=== PATIENT | female | born 1970 | race Hispanic/Latino ===

== ENCOUNTER → 2018-06-17 | Outpatient (CLI) | payer OTHER | END | disposition home or self-care (01) | LOC: RAH 13:52 | PROVIDERS: ATTEND Family Medicine | DX: Z12.31 Encounter for screening mammogram for malignant neoplasm of breast (principal) | CPT/HCPCS: 77067 ==

== ENCOUNTER → 2018-12-24 | Outpatient (CLI) | payer OTHER | END | disposition home or self-care (01) | LOC: RAH 12:53 | PROVIDERS: ATTEND Family Medicine | DX: N60.01 Solitary cyst of right breast (principal); N63.10 Unspecified lump in the right breast, unspecified quadrant | CPT/HCPCS: 76641; 77065 ==

== ENCOUNTER → 2019-05-29 | Outpatient (CLI) | payer OTHER | END | disposition home or self-care (01) | LOC: RAH 10:00 | PROVIDERS: ATTEND Family Medicine | DX: N63.21 Unspecified lump in the left breast, upper outer quadrant (principal) | CPT/HCPCS: 76641; 77066 ==

== ENCOUNTER → 2019-08-01 | Outpatient (CLI) | payer OTHER ==
[2019-08-01 08:52] LABS: INR 0.99 (0.85-1.15); PARTIAL THROMBOPLASTIN TIME 24.5 SEC (26.3-35.5); PROTHROMBIN TIME 10.4 SEC (9.6-11.6)
--- NOTE | 2019-08-01 09:15 | NUR ---
U/S GUIDED BIOPSY LEFT BREAST NODULE PROCEDURE PERFORMED BY DR. TIRADO. PUNCTURE SITE LEFT LATERAL BREAST. PATIENT TOLERATED PROCEDURE WELL. SPECIMEN X 3 COLLECTED. END OF PROCEDURE AT 0920. BIOPSY NEEDLE REMOVED AND DRESSING APPLIED. NO BLEEDING NOTED. DISCHARGE INSTRUCTIONS GIVEN TO PATIENT AND VERBALIZED UNDERSTANDING. DISCHARGED AT 0940 AMBULATORY. PT STABLE, AAO X 3, WITH NO C/O PAIN.
== END ==
LOC: EDSTATUS 07-25 08:00 → RAH 07:41
PROVIDERS: ATTEND Family Medicine
DX: D24.2 Benign neoplasm of left breast (principal); R92.0 Mammographic microcalcification found on diagnostic imaging of breast; Z88.0 Allergy status to penicillin; Z88.1 Allergy status to other antibiotic agents
CPT/HCPCS: 19083; 36415; 85610; 85730; 88305; A4215

== ENCOUNTER → 2020-08-30 | Outpatient (CLI) | payer OTHER | END | disposition home or self-care (01) | LOC: RAH 10:56 | PROVIDERS: ATTEND Obstetrics & Gynecology | DX: Z12.31 Encounter for screening mammogram for malignant neoplasm of breast (principal) | CPT/HCPCS: 77067 ==

== ENCOUNTER → 2021-09-15 | Outpatient (CLI) | payer OTHER | END | disposition home or self-care (01) | LOC: RAH 08:48 | PROVIDERS: ATTEND Obstetrics & Gynecology | DX: Z12.31 Encounter for screening mammogram for malignant neoplasm of breast (principal) | CPT/HCPCS: 77067 ==

== ENCOUNTER → 2022-12-14 | Outpatient (CLI) | payer OTHER | END | disposition home or self-care (01) | LOC: RAH 13:02 | PROVIDERS: ATTEND Obstetrics & Gynecology | DX: I87.8 Other specified disorders of veins (principal); R31.9 Hematuria, unspecified; Z90.49 Acquired absence of other specified parts of digestive tract | CPT/HCPCS: 74018 ==

== ENCOUNTER → 2023-03-27 | Outpatient (CLI) | payer OTHER | END | disposition home or self-care (01) | LOC: RAH 11:34 | PROVIDERS: ATTEND Internal Medicine Nephrology | DX: Z12.31 Encounter for screening mammogram for malignant neoplasm of breast (principal) | CPT/HCPCS: 77067 ==

== ENCOUNTER → 2023-04-17 | Outpatient (CLI) | payer OTHER | END | disposition home or self-care (01) | LOC: RAH 09:07 | PROVIDERS: ATTEND Internal Medicine Nephrology | DX: Z78.0 Asymptomatic menopausal state (principal) | CPT/HCPCS: 77080 ==